=== PATIENT | female | born 1960 | race African-American/Black ===

== ENCOUNTER 2018-09-15 14:00 | Emergency (ER) | payer MEDICARE, MEDICAID ==
--- NOTE | 2018-09-15 15:45 | RAD ---
AP VIEW PELVIS: 09/15/2018 HISTORY: Fall. Pain. COMPARISON: 11/12/2009 FINDINGS: AP view pelvis demonstrates the pelvis to be unremarkable. No evidence of pelvic fractures, subluxat ions, or bony lesions are seen. IMPRESSION: Unremarkable anterior-posterior view pelvis. POS: [facility]
--- NOTE | 2018-09-15 15:47 | RAD ---
TWO VIEWS OF RIGHT HIP: HISTORY: Fall. Right hip pain. FINDINGS: AP and frog leg views of the right hip are obtained. Two views right hip demonstrate no evidence of right hip fractures, subluxations, or bony lesions. IMPRESSION: Normal 2 views right hip. POS: [facility]
--- NOTE | 2018-09-15 15:48 | RAD ---
THREE VIEWS LEFT HAND: HISTORY: Fall. Left hand pain. FINDINGS: AP, lateral, and oblique views of the left hand were obtained. Three views of the left hand demonstrate no evidence of left hand fractures, subluxations, or bony le sions. IMPRESSION: Normal 3 views left hand. POS: [facility]
--- NOTE | 2018-09-15 15:49 | RAD ---
THREE VIEWS LEFT HAND: HISTORY: Fall. Left hand pain everywhere. FINDINGS: AP, lateral, and oblique views left hand were obtained. Three views left hand demonstrate no evidence of left hand fractures, subluxations, or bony lesions. IMPRESSION: Normal 3 views left hand. POS: [facility]
== END 2018-09-15 16:04 | disposition home or self-care (01) ==
LOC: ERS 14:00
DX: M25.532 Pain in left wrist (principal); M25.551 Pain in right hip; W18.30XA Fall on same level, unspecified, initial encounter; Z79.899 Other long term (current) drug therapy; I10 Essential (primary) hypertension; M19.90 Unspecified osteoarthritis, unspecified site
CPT/HCPCS: 72170

== ENCOUNTER 2024-09-12 17:23 | Inpatient (IN) | payer OTHER ==
[2024-09-12] MEDS ORDERED: Guaifenesin DM 100-10/5 ML UDCUP PO PRN (17:58)
[2024-09-12] MEDS ORDERED: Ondansetron PF 4 MG/2 ML Vial IVP PRN (17:58)
[2024-09-12 18:53] LABS: Hemoglobin 10.4 g/dL (12.0-16.0); Platelet Count 166 10x3/uL (130-400)
[2024-09-12 19:15] VITALS: BMI 53.1
[2024-09-12] MEDS ORDERED: FLU (Fluarix Triv) TS24-25(6MOS UP)/PF 45 MCG/0.5 ML Syringe IM ONE (19:15)
[2024-09-12 19:31] LABS: PTT Greater than 250.0 sec (22.9-36.1)
[2024-09-12] MEDS: hydrALAZINE 20 MG/ML VIAL SLOW IVP PRN (21:07)
[2024-09-12] MEDS: HYDROcodone/Acetaminophen 10/325 mg Tablet PO PRN (21:11)
[2024-09-12] MEDS: Heparin 25,000 units/D5W 500 ML IVPB SCH (23:16)
[2024-09-13 00:11] LABS: Influenza A by NAA Not Detected (NotDetected); Influenza B by NAA Not Detected (NotDetected); SARS-CoV-2 NAA Rapid Test Not Detected (NotDetected)
[2024-09-13 00:31] LABS: Troponin I 0.283 ng/mL (< 0.028)
[2024-09-13 02:55] LABS: #Basophils Less than 0.03 10x3/uL (0.0-0.2); #Eosinophils Less than 0.03 10x3/uL (0.0-0.7); %Basophils 0.2 % (0.0-1.0); %Lymphocytes 24.4 % (21.0-51.0); %Monocytes 9.9 % (0.0-10.0); %Neutrophils 65.2 % (42.0-75.0); Hematocrit 33.2 % (36.0-47.0); Hemoglobin 10.4 g/dL (12.0-16.0); Mean Corpuscular HGB CONC 31.3 g/dL (32.0-36.0); Mean Corpuscular Hemoglobin 29.9 pg (27.0-31.0); Mean Corpuscular Volume 95.4 fL (78.0-98.0); Mean Platelet Volume 10.7 fL (7.4-10.4); Platelet Count 190 10x3/uL (130-400); Red Blood Cell (RBC) Count 3.48 mill/uL (4.20-5.40)
[2024-09-13 03:52] LABS: Critical Call Chem Troponin I RESULT DECREASING
[2024-09-13] MEDS: Acetaminophen 325 MG TAB PO PRN (04:02)
[2024-09-13 04:13] LABS: Anion Gap 18 mmol/L (10-20); BUN (Urea Nitrogen) 10 mg/dL (9.8-20.1); Calc. Creatinine Clearance 138 mL/min (70-130); Calcium 8.8 mg/dL (7.8-10.44); Carbon Dioxide 24 mmol/L (23-31); Chloride 97 mmol/L (98-107); Estimated GFR 65; Glucose 115 mg/dL (80-115); Potassium 3.4 mmol/L (3.5-5.1); Sodium 136 mmol/L (136-145)
[2024-09-13 05:37] LABS: Lactic Acid 1.14 mmol/L (0.5-2.2)
[2024-09-13 05:49] LABS: PTT 194.9 sec (22.9-36.1)
[2024-09-13] MEDS: Lisinopril 10 MG TAB PO SCH (09:02)
[2024-09-13] MEDS: cefTRIAXone\\ROCEPHIN 2 GM in Sodium Chloride 0.9% 100 ML IVPB SCH (15:33)
[2024-09-14 03:42] LABS: PTT 122.4 sec (22.9-36.1)
[2024-09-14 04:46] LABS: Anion Gap 13 mmol/L (10-20); BUN (Urea Nitrogen) 11 mg/dL (9.8-20.1); Calc. Creatinine Clearance 136 mL/min (70-130); Calcium 8.9 mg/dL (7.8-10.44); Carbon Dioxide 32 mmol/L (23-31); Chloride 95 mmol/L (98-107); Estimated GFR 64; Glucose 129 mg/dL (80-115); Potassium 3.4 mmol/L (3.5-5.1); Sodium 137 mmol/L (136-145)
[2024-09-14] MEDS: Ferrous Sulfate 325 MG TAB PO SCH (08:30)
[2024-09-14] MEDS: Potassium Chloride 20 MEQ TAB PO SCH ×2 (10:42→16:05)
[2024-09-14] MEDS: Heparin 10,000 UNITS/ 10 ML VIAL SLOW IVP SCH (10:55)
[2024-09-14] MEDS: Senokot S 8.6-50 MG TAB PO PRN (14:17)
[2024-09-14 17:02] LABS: Hematocrit 30.5 % (36.0-47.0); Hemoglobin 9.5 g/dL (12.0-16.0); Platelet Count 236 10x3/uL (130-400)
[2024-09-14] MEDS: Apixaban 5 MG TAB PO SCH (21:08)
[2024-09-15 05:59] LABS: Anion Gap 14 mmol/L (10-20); BUN (Urea Nitrogen) 12 mg/dL (9.8-20.1); Calc. Creatinine Clearance 165 mL/min (70-130); Calcium 8.9 mg/dL (7.8-10.44); Carbon Dioxide 32 mmol/L (23-31); Chloride 99 mmol/L (98-107); Estimated GFR 81; Glucose 108 mg/dL (80-115); Potassium 4.1 mmol/L (3.5-5.1); Sodium 141 mmol/L (136-145)
[2024-09-15] MEDS: Senokot S 8.6-50 MG TAB PO SCH (11:19)
[2024-09-15] MEDS: Polyethylene Glycol 3350 17 GM Packet PO SCH (11:19)
[2024-09-16 08:30] VITALS: BP 185/89; TEMP 98.1
== END 2024-09-16 12:28 | disposition home or self-care (01) | DRG 176 ==
LOC: OBS 17:53
PROVIDERS: ADMIT Hospitalist; ATTEND Family Medicine
DX: I26.99 Other pulmonary embolism without acute cor pulmonale (principal); N39.0 Urinary tract infection, site not specified; I82.401 Acute embolism and thrombosis of unspecified deep veins of right lower extremity; Z68.43 Body mass index [BMI] 50.0-59.9, adult; E66.01 Morbid (severe) obesity due to excess calories; I10 Essential (primary) hypertension; G89.4 Chronic pain syndrome; Z88.2 Allergy status to sulfonamides; Z79.899 Other long term (current) drug therapy; K59.00 Constipation, unspecified; Z98.890 Other specified postprocedural states
CPT/HCPCS: 36415; 71045; 71275; 80048; 80053; 81001; 83605; 83690; 83735; 83880; 84484; 85014; 85018; 85025; 85049; 85610; 85730; 87040; 93005; 93970; 96365; 96375; 96376; J0360; J0696; J1644; J1885; J2405; J3475; Q9967